=== PATIENT | female | born 1995 | race African-American/Black ===

== ENCOUNTER 2016-09-11 11:53 | Emergency (ER) | payer SELFPAY ==
[~2016-09-11] VITALS: Ht 162.6 cm; Wt 100.0 kg
[2016-09-11 11:55] VITALS: BP 112/67; PULSE 99; TEMP 98.9
[2016-09-11] MEDS ORDERED: AMOXICILLIN/CLA1 TA1 PO (12:20)
[2016-09-11] MEDS ORDERED: CIPRODEX OT (12:37)
== END 2016-09-11 12:49 | disposition home or self-care (01) ==
LOC: COL.ER 11:53
DX: H60.92 Unspecified otitis externa, left ear (principal); F17.210 Nicotine dependence, cigarettes, uncomplicated

== ENCOUNTER 2017-04-20 12:28 | Emergency (ER) | payer BC ==
[~2017-04-20] VITALS: Ht 162.6 cm; Wt 102.7 kg
[~2017-04-20 12:28] MED LIST: AMOXICILLIN/CLA1 TA1 PO; CIPRODEX OT; PRENATAL1 TA7 PO
[2017-04-20 12:30] VITALS: BP 127/74; TEMP 99.2
[2017-04-20] MEDS ORDERED: AMOXICILLIN 50500 MG PO (17:00)
[2017-04-20 17:09] VITALS: PULSE 85
== END 2017-04-20 17:11 | disposition home or self-care (01) ==
LOC: COL.ER 12:28
DX: J02.0 Streptococcal pharyngitis (principal); F17.210 Nicotine dependence, cigarettes, uncomplicated
CPT/HCPCS: J1885

== ENCOUNTER 2017-06-29 17:28 | Emergency (ER) | payer BC ==
[~2017-06-29] VITALS: Ht 162.6 cm; Wt 100.0 kg
[~2017-06-29 17:28] MED LIST changes: +AMOXICILLIN 50500 MG PO
[2017-06-29 17:38] VITALS: TEMP 98
[2017-06-29] MEDS ORDERED: NORCO 325 MG-51 TAB PO (18:21)
[2017-06-29] MEDS ORDERED: AMOXICILLIN 50500 MG PO (18:21)
[2017-06-29 18:37] VITALS: BP 123/82; PULSE 78
== END 2017-06-29 18:39 | disposition home or self-care (01) ==
LOC: COL.ER 17:28
DX: K02.9 Dental caries, unspecified (principal); F17.210 Nicotine dependence, cigarettes, uncomplicated

== ENCOUNTER 2018-05-02 21:03 | Emergency (ER) | payer BC ==
[~2018-05-02] VITALS: Ht 162.6 cm; Wt 109.5 kg
[~2018-05-02 21:03] MED LIST changes: +NORCO 325 MG-51 TAB PO
[2018-05-02 21:09] VITALS: TEMP 98
[2018-05-02 21:40] LABS: COLLECTION METHOD CLEAN CATCH
[2018-05-02 22:03] LABS: MUCOUS Present /lpf; PH 6 (5-8); URINE APPEARANCE Cloudy; URINE BACTERIA Rare /hpf; URINE BILIRUBIN Negative (NEGATIVE); URINE BLOOD Negative (NEGATIVE); URINE COLOR Yellow; URINE GLUCOSE Negative (NEGATIVE); URINE KETONE Negative (NEGATIVE); URINE LEUKOCYTE ESTERASE 1+ (NEGATIVE); URINE NITRATE Negative (NEGATIVE); URINE PROTEIN(semi-quant) Negative (NEGATIVE); URINE UROBILINOGEN Negative (NEGATIVE)
[2018-05-02 22:11] LABS: BASO % 0.3 % (0.0-2.0); EOS # 0.1 (0.0-0.7); EOS % 1.2 % (0-4.0); GRAN # 4.9 (1.4-6.5); GRAN % 49.9 % (42.2-75.2); HEMATOCRIT 40.9 % (37.0-47.0); HEMOGLOBIN 13.3 g/dl (12.5-16.0); LYMPH # 4.1 (1.2-3.4); LYMPH % 41.4 % (20.0-51.0); MEAN CELL VOLUME 91 fl (80.0-100.0); MEAN CORPUSCULAR HEMOGLOBIN 30 pg (27.0-31.0); MEAN CORPUSCULAR HGB CONC 33 g/dl (33.0-37.0); MEAN PLATELET VOLUME 9.5 fl (7.4-10.4); MONO # 0.7 (0.1-0.6); PLATELET COUNT 302 K/mm3 (130-400); RED BLOOD COUNT 4.51 M/mm3 (4.10-5.30); REDCELL DISTRIBUTION WIDTH-CV 13.6 % (11.5-14.5)
[2018-05-02 22:22] LABS: ALBUMIN 3.9 gm/dL (3.5-5.0); BILIRUBIN,TOTAL 0.2 mg/dL (0.0-1.0); CALCIUM 9.1 mg/dL (8.4-10.2); CREATININE, serum 0.72 mg/dL (0.52-1.25); POTASSIUM 3.4 mmol/L (3.4-5.0); TOTAL PROTEIN 7.5 gm/dL (6.4-8.2)
[2018-05-02 22:56] LABS: COLLECTION METHOD CLEAN CATCH
[2018-05-02 23:01] LABS: MUCOUS Present /lpf; PH 5 (5-8); URINE APPEARANCE Clear; URINE BACTERIA Rare /hpf; URINE BILIRUBIN Negative (NEGATIVE); URINE BLOOD Negative (NEGATIVE); URINE COLOR Yellow; URINE GLUCOSE Negative (NEGATIVE); URINE KETONE Negative (NEGATIVE); URINE LEUKOCYTE ESTERASE Negative (NEGATIVE); URINE NITRATE Negative (NEGATIVE); URINE PROTEIN(semi-quant) Negative (NEGATIVE); URINE RBC 0-2 /hpf; URINE UROBILINOGEN Negative (NEGATIVE)
[2018-05-02] MEDS ORDERED: NORCO 325 MG-51 TAB PO (23:56)
[2018-05-03 00:20] VITALS: BP 123/90; PULSE 71
== END 2018-05-03 00:20 | disposition home or self-care (01) ==
LOC: COL.ER 21:03
PROVIDERS: Emergency Medicine
DX: D27.0 Benign neoplasm of right ovary (principal); F17.210 Nicotine dependence, cigarettes, uncomplicated
CPT/HCPCS: J2405; J3010; J7030; Q9967

== ENCOUNTER 2019-01-08 19:34 | Emergency (ER) | payer BC ==
[~2019-01-08] VITALS: Ht 162.6 cm; Wt 109.1 kg
[2019-01-08 19:50] VITALS: BP 132/65; TEMP 98.4
[2019-01-09 00:31] LABS: BASO % 0.4 % (0.0-2.0); EOS # 0.1 (0.0-0.7); EOS % 1.3 % (0-4.0); GRAN # 5.3 (1.4-6.5); GRAN % 57.7 % (42.2-75.2); HEMATOCRIT 42.8 % (37.0-47.0); LYMPH # 3.1 (1.2-3.4); LYMPH % 33.8 % (20.0-51.0); MEAN CELL VOLUME 91 fl (80.0-100.0); MEAN CORPUSCULAR HEMOGLOBIN 30 pg (27.0-31.0); MEAN CORPUSCULAR HGB CONC 33 g/dl (33.0-37.0); MONO # 0.6 (0.1-0.6); MONO % 6.6 % (1.7-9.3); PLATELET COUNT 308 K/mm3 (130-400); RED BLOOD COUNT 4.71 M/mm3 (4.10-5.30); REDCELL DISTRIBUTION WIDTH-CV 13.4 % (11.5-14.5)
[2019-01-09 00:36] LABS: MONOSCREEN NEGATIVE
[2019-01-09 00:38] LABS: ALBUMIN 4.5 gm/dL (3.5-5.0); BILIRUBIN,TOTAL 0.3 mg/dL (0.0-1.0); C-REACTIVE PROTEIN 1.1 mg/dL (0.0-0.9); CALCIUM 9.6 mg/dL (8.4-10.2); CREATININE, serum 0.75 (0.52-1.25); POTASSIUM 4.1 mmol/L (3.4-5.0); TOTAL PROTEIN 8.6 gm/dL (6.4-8.2)
[2019-01-09 02:14] LABS: COLLECTION METHOD CLEAN CATCH
[2019-01-09 02:32] LABS: MUCOUS Present /lpf; PH 6 (5-8); URINE APPEARANCE Hazy; URINE BACTERIA Rare /hpf; URINE BILIRUBIN Negative (NEGATIVE); URINE BLOOD Negative (NEGATIVE); URINE COLOR Yellow; URINE GLUCOSE Negative (NEGATIVE); URINE KETONE Negative (NEGATIVE); URINE LEUKOCYTE ESTERASE Trace (NEGATIVE); URINE NITRATE Negative (NEGATIVE); URINE PROTEIN(semi-quant) Negative (NEGATIVE); URINE UROBILINOGEN Negative (NEGATIVE)
[2019-01-09] MEDS ORDERED: ZITHROMAX 250M250 MG PO (03:08)
[2019-01-09] MEDS ORDERED: PREDNISONE20 MG PO (03:08)
[2019-01-09 03:30] VITALS: PULSE 69
== END 2019-01-09 03:28 | disposition home or self-care (01) ==
LOC: COL.ER 19:34
PROVIDERS: Nurse Practitioner
DX: J20.9 Acute bronchitis, unspecified (principal); G43.909 Migraine, unspecified, not intractable, without status migrainosus
CPT/HCPCS: J1885; J2405; J7030; J7512

== ENCOUNTER 2019-08-09 13:29 | Emergency (ER) | payer SELFPAY ==
[~2019-08-09] VITALS: Ht 162.6 cm; Wt 90.9 kg
[~2019-08-09 13:29] MED LIST changes: +PREDNISONE20 MG PO; +ZITHROMAX 250M250 MG PO
[2019-08-09 14:15] LABS: COLLECTION METHOD CLEAN CATCH
[2019-08-09 14:26] LABS: PH 7 (5-8); URINE APPEARANCE Hazy; URINE BACTERIA Rare /hpf; URINE BILIRUBIN Negative (NEGATIVE); URINE BLOOD Negative (NEGATIVE); URINE COLOR Straw; URINE GLUCOSE Negative (NEGATIVE); URINE KETONE Negative (NEGATIVE); URINE LEUKOCYTE ESTERASE 2+ (NEGATIVE); URINE NITRATE Negative (NEGATIVE); URINE PROTEIN(semi-quant) Negative (NEGATIVE); URINE RBC 0-2 /hpf; URINE UROBILINOGEN Negative (NEGATIVE)
[2019-08-09] MEDS ORDERED: MACROBID 1100 MG/CAP PO (14:48)
[2019-08-09 15:15] VITALS: BP 113/76; PULSE 72; TEMP 97.8
== END 2019-08-09 15:32 | disposition home or self-care (01) ==
LOC: COL.ER 13:29
PROVIDERS: Emergency Medicine
DX: N39.0 Urinary tract infection, site not specified (principal)
CPT/HCPCS: J0696

== ENCOUNTER 2019-12-23 14:15 | Emergency (ER) | payer BC ==
[~2019-12-23] VITALS: Ht 162.6 cm; Wt 104.5 kg
[~2019-12-23 14:15] MED LIST changes: +MACROBID 1100 MG/CAP PO
[2019-12-23 14:24] VITALS: TEMP 98.1
[2019-12-23 16:56] LABS: COLLECTION METHOD CLEAN CATCH
[2019-12-23 17:14] LABS: BASO # 0.1 (0.0-0.2); BASO % 0.4 % (0.0-2.0); EOS # 0.1 (0.0-0.7); EOS % 0.6 % (0-4.0); GRAN # 9.8 (1.4-6.5); GRAN % 70.7 % (42.2-75.2); HEMATOCRIT 43.3 % (37.0-47.0); LYMPH # 3.1 (1.2-3.4); LYMPH % 22.2 % (20.0-51.0); MEAN CELL VOLUME 90 fl (80.0-100.0); MEAN CORPUSCULAR HEMOGLOBIN 29 pg (27.0-31.0); MEAN CORPUSCULAR HGB CONC 32 g/dl (33.0-37.0); MEAN PLATELET VOLUME 9.8 fl (7.4-10.4); MONO # 0.8 (0.1-0.6); MONO % 5.9 % (1.7-9.3); PLATELET COUNT 371 K/mm3 (130-400); REDCELL DISTRIBUTION WIDTH-CV 14.3 % (11.5-14.5)
[2019-12-23 17:25] LABS: MUCOUS Present /lpf; PH 6 (5-8); URINE APPEARANCE Cloudy; URINE BACTERIA Rare /hpf; URINE BILIRUBIN Negative (NEGATIVE); URINE BLOOD Negative (NEGATIVE); URINE COLOR Yellow; URINE GLUCOSE Negative (NEGATIVE); URINE KETONE Negative (NEGATIVE); URINE LEUKOCYTE ESTERASE Trace (NEGATIVE); URINE NITRATE Negative (NEGATIVE); URINE PROTEIN(semi-quant) Negative (NEGATIVE); URINE UROBILINOGEN Negative (NEGATIVE)
[2019-12-23 17:28] LABS: ALBUMIN 4.6 gm/dL (3.5-5.0); BILIRUBIN,TOTAL 0.3 mg/dL (0.0-1.0); C-REACTIVE PROTEIN 1.1 mg/dL (0.0-0.9); CALCIUM 9.3 mg/dL (8.4-10.2); CREATININE, serum 0.84 (0.52-1.25); TOTAL PROTEIN 8.4 gm/dL (6.4-8.2)
[2019-12-23] MEDS ORDERED: NORCO 325 MG-51 TAB PO (20:01)
[2019-12-23] MEDS ORDERED: FLEXERIL 1010 MG/TAB PO ×2 (20:06)
[2019-12-23 20:20] VITALS: BP 133/70; PULSE 85
== END 2019-12-23 20:20 | disposition home or self-care (01) ==
LOC: COL.ER 14:15
PROVIDERS: Family Medicine
DX: R10.31 Right lower quadrant pain (principal); R10.32 Left lower quadrant pain
CPT/HCPCS: J2405; J3010; J7120; Q9967